=== PATIENT | male | born 1960 | race Caucasian/White ===

== ENCOUNTER 2018-04-16 07:44 | Inpatient (IN) | payer OTHER ==
[~2018-04-16] VITALS: Ht 172.7 cm; Wt 89.6 kg
--- NOTE | 2018-04-16 07:44 | NUR ---
BIB MEDICS FROM [facility]. PT WAS FOUND ALOC & INCONTINENT OF URINE IN BED IN HIS CELL BY HIS JAILERS ON ROUNDS THIS MORNING. PT WAS LAST SEEN NORMAL LAST NIGHT. PT ARRIVES W/ EYES OPEN, RIGHT GAZE, WITH DEEP RESPIRATIONS, HOLDING ARMS STIFF TO SIDES, NOT REALLY MOVING, NOT RESPONDING TO NAME, NOT TRACKING, NON-VERBAL, NOT FOLLOWING COMMANDS. PT PLACED ON FULL MONITORS & O2 VIA MASK. SEEN ON ARRIVAL BY DR. SALAS. (+)GAG REFLEX.
--- NOTE | 2018-04-16 08:03 | NUR ---
IV BEGUN BY TANYA STAUFFER W/ LABS INCLUDING 1ST BLOOD CULTURE DRAWN.
--- NOTE | 2018-04-16 08:10 | NUR ---
RT @ BEDSIDE UNSUCCESSFULLY ATTEMPTING ABG. PT IS NOW ON ROOM AIR PER DR. SALAS.
--- NOTE | 2018-04-16 08:20 | NUR ---
PT ROLLED; SKIN CLEANSED, & CLEAN SHEET/CHUX/DIAPER PLACED UNDER PT. SKIN IS INTACT.
[2018-04-16 08:21] VITALS: Ht 172.7 cm; Wt 89.6 kg
--- NOTE | 2018-04-16 08:24 | NUR ---
ABG SUCCESSFULLY DRAWN BY RT ON 2ND ROUND OF ATTEMPTS.
--- NOTE | 2018-04-16 08:25 | NUR ---
DUVALL CATH INSERTED; WHILE PREPARING DUVALL INSERTION TRAY, PT STARTED VOIDING, MID STREAM URINE COLLECTED BY PELON STAUFFER & SENT TO LAB. PT HARDLY REACTED TO PROCEDURE.
--- NOTE | 2018-04-16 08:26 | NUR ---
RECTANGULAR SCAR NOTED TO RT ANTERIOR THIGH, LOOKS LIKE SKIN GRAFT DONOR SITE. SCARRING NOTED TO RT CHEST/RT SHOULDER AREA CONSISTENT W/ PREVIOUS BURN/SKIN GRAFTS.
[2018-04-16 08:28] LABS: BASOPHIL % 0.4 % (0-2)
--- NOTE | 2018-04-16 08:30 | NUR ---
TO CT VIA [facility].
--- NOTE | 2018-04-16 08:35 | NUR ---
BILAT NARES SWABBED FOR INFLUENZA SCREENING WHILE PT STILL IN CT. PT MORE AWAKE, JERKING HIS HEAD BACK & FORTH/UNCOOPERATIVE W/ SWABBING.
--- NOTE | 2018-04-16 08:36 | NUR ---
BACK FROM CT. PCXR IN PROGRESS.
[2018-04-16 08:40] LABS: CALCIUM 8.2 mg/dL (8.5-10.1); CARBON DIOXIDE 26.7 mmol/L (21-32); CHLORIDE SERUM 110 mmol/L (98-107); CREATININE SERUM 0.9 mg/dL (0.7-1.3); GFR1 > 60 mL/min; GLUCOSE SERUM 98 mg/dL (74-106); POTASSIUM SERUM 4.5 mmol/L (3.5-5.1); SODIUM SERUM 142 mmol/L (136-145)
[2018-04-16 08:41] LABS: microscopic required? NO
[2018-04-16 08:44] LABS: ALBUMIN 2.8 g/dL (3.4-5.0); ALKALINE PHOSPHATASE 248 U/L (46-116); ALT/SGPT 71 U/L (16-63); AST/SGOT 88 U/L (15-37); BILIRUBIN TOTAL 3.4 mg/dL (0.20-1.00); CHOLESTEROL 112 mg/dL (<200); HDL CHOLESTEROL 70 mg/dL (40-60); TOTAL PROTEIN, SERUM 6.7 g/dL (6.4-8.2)
--- NOTE | 2018-04-16 08:45 | NUR ---
FLUID BOLUS BEGAN ORDERED.
--- NOTE | 2018-04-16 08:48 | NUR ---
LAB @ BEDSIDE FOR 2ND BLOOD CULTURE.
[2018-04-16 09:12] LABS: PLATELET COUNT 73 x10^3mcL (130-400)
[2018-04-16 09:29] LABS: urine erythrocyte NEGATIVE (NEGATIVE)
--- NOTE | 2018-04-16 09:30 | NUR ---
TELEPHONE ADMISSION ORDERS RECEIVED FROM DR. BHATT.
[2018-04-16 09:44] LABS: AMPHETAMINE QUAL UR NONE DETECTED (See below)
[2018-04-16] MEDS ORDERED: LASIX20 MG PO (09:48)
[2018-04-16] MEDS ORDERED: CAPSAICIN42.5 GM TOP (09:48)
[2018-04-16] MEDS ORDERED: CIPRO500 MG PO (09:48)
[2018-04-16] MEDS ORDERED: LACTULOSE10 GM/152 PO (09:49)
[2018-04-16] MEDS ORDERED: DULERA1 AR2 INH (09:50)
[2018-04-16] MEDS ORDERED: XIFAXAN550 M1 PO (09:51)
[2018-04-16] MEDS ORDERED: ALDACTONE25 MG PO (09:52)
[2018-04-16] MEDS ORDERED: MP PO (09:55)
[2018-04-16] MEDS ORDERED: XOPENEX HF0.045 MG/1 INH (09:55)
--- NOTE | 2018-04-16 09:55 | NUR ---
SALEM SUMP INSERTION WAS TRIED BY DENISE FRANCES RN W/ NATALIO RN. ATTEMPT WAS UNSUCCESSFUL & PT HAD BLOOD FROM RT NARE & STARTED COUGHING UP BLOOD. ATTEMPTS WERE ABORTED & DR. SALAS WAS NOTIFIED OF BLEEDING. DR SALAS CHECKED PT & FELT BLOOD WAS COMING FROM NARE, NOT ESOPHAGUS, BUT STATED TO DC NGT ATTEMPTS & TO GIVE LACTULOSE RECTALLY INSTEAD.
--- NOTE | 2018-04-16 09:56 | NUR ---
MED REC COMPLETED USING PAPERWORK SENT FROM [facility].
--- NOTE | 2018-04-16 10:25 | NUR ---
NGT WAS PLACED RECTALLY & LACTULOSE WAS ADMINISTERED RECTALLY.
--- NOTE | 2018-04-16 10:33 | NUR ---
PER MICRO, PROBLEM W/ FLU SWAB. SPECIMEN RECOLLECTED & HANDED DIRECTLY TO APPLICATION INTEGRATION ENGINEER.
--- NOTE | 2018-04-16 11:08 | NUR ---
REPORT CALLED TO BHAVYA ON TELE.
[2018-04-16 12:04] VITALS: BP 110/88
--- NOTE | 2018-04-16 12:30 | NUR ---
RECEIVED PATIENT FROM ER AND HE REMAINS LETHARGIC AND HAS NOT RESPONDED EXCEPT MINIMALLY TO VERBAL AND TACTILE COMANDS. PATIENT IS ON IV FLUIDS AT 150CC PER HOUR FROM THE ER AND RECEIVED TWO LITERS OF NORMAL SALINE AND LACTULOSE VIA RECTAL IN THE ER WELL. PER THE NURSE THE PATIENT RECEIVED ROCEPHIN AND HAS BEEN WITH MINIMAL RESPONSE TO THEM WELL. HE HAS NOTED TATOOS TO THE BODY AND SCARRING TO THE SHOULDER AND THE LEG FROM APPARENT SKIN GRAFTS. PATIENT HAS VITALS AT THIS TIME AT 97.9, 132/84, 96 MAP, 87, 18. PATIENT HAQ SNOT APPEAR TO BE IN ANY RESPIRATORY DISTRESS AND WITH HISTIRY OF CIRRHOSIS AND BI POLAR DISORDER WELL HX OF PNUEMONIA IN JANUARY. PATIENT HAS BEEN GIVEN NARCAN BUT NO EFFECT AND HIS DRUG LEVEL IS NEGATIVE FOR NARCOTICS. PATIENT HAS AN TIV TO BOTH AC AND IS WITH NEGATIVE CHEST XRAY THE LAB THAT DEFINES THIS HOPITAL STAY IS THE AMMONIA LEVEL AT 267. PATIENT IS NTO ABLE TO TRACK AND NO VERBALIZATION AND HAS A HISTORY OF HEPATITIS C. THE GAURDS ARE AT BEDSIDE AND SECURITY HAS BEEN MAINTAINED. CONTINUED ION IV FLUIDS AND DR BHATT IS NOW HERE TO SEE THE PATIENT AND AWAITING FURTHER ORDERS.
[2018-04-16 12:41] VITALS: BP 132/84
[2018-04-16 13:34] VITALS: BP 129/60
[2018-04-16 16:14] VITALS: BP 137/84
--- NOTE | 2018-04-16 16:55 | NUR ---
SPOKE WITH DR AGUILA ON THE PHONE AND ORDER FOR LACTULOSE RECTAL ENEMA OF 90CC WITH 90 CC OF WATER. PATIENT IS TO RETAIN THE MEDICATION. DUE TO HIS ALTERED LEVEL OF CONCIOUSNESS THE PATIENT MAY NOT BE ABLE TO FOLLOW THIS DIRRECTION. WILL ATTEMPT INDICATED. PATIENT IS LESS STILL NOW AND RESTING QUIETLY. WILL MONITOR FOR OUTPUT.
--- NOTE | 2018-04-16 18:08 | NUR ---
PATIENT GIVEN THE ENEMA WITH THE LACTULOSE AND WATER. PATIENT IS STILL NOT QUITE COMPLETELY ALERT AND ANSWERS YES ERIC TO EVERYTHING ASKED. ENCOURAGE TO HOLD THE MEDICATION IN FOR LONG HE CAN. THE PATIENT ADMITS HE WAS NOT TAKING HIS LACTULOSE HE SHOULD AT THE CORRECTION. WILL MONITOR FOR OUTPUT.
--- NOTE | 2018-04-16 18:30 | NUR ---
NO RESULTS YET WITH THE LACTULOSE ENEMA. WILL CONTINUE TO MONITOR INDICATED.
--- NOTE | 2018-04-16 19:35 | NUR ---
RECEIVED REPORT FROM DAY SHIFT RN. PT LETHARGIC. RESPONDS TO VERBAL SIMULI. ORIENTED TO SELF. REORIENTED TO PLACE AND TIME. NO SOB ON ROOM AIR. NO C/O PAIN. IV TO RAC AND LAC, INTACT. SAFETY MEASURES IN PLACE. BED IN LOWEST POSITION. SIDE RAILS UP X3. DEMONSTRATED HOW TO USE THE CALL LIGHT FOR ASSISTANCE. CALL LIGHT WITHIN REACH. CIM GUARDS AT BEDSIDE.
[2018-04-16 21:30] VITALS: BP 120/84
[2018-04-17 05:51] VITALS: BP 117/80
--- NOTE | 2018-04-17 06:45 | NUR ---
PT SLEPT WELL THROUGHOUT SHIFT. AROUSABLE WITH VERBAL STIMULI. PT ORIENTED TO SELF. SLOW RESPONSE BUT ABLE TO FOLLOW COMMANDS. NO SOB ON ROOM AIR. NO C/O PAIN. NO ACUTE DISTRESS NOTED. SAFETY MEASURES MAINTAINED. BED IN LOWEST POSITION. SIDE RAILS UP X3. CALL LIGHT WITHIN REACH. CIM GUARDS X2 AT BEDSIDE. WILL ENDORSE CONTINUITY OF CARE TO ONCOMING RN.
--- NOTE | 2018-04-17 07:20 | NUR ---
PT SEEN REST ON BED WITH TWO GUARDS AT BED SIDE. PT IS SLEEPING BUT AROUSABLE WITH VERBAL RESPONSE, CLEAR SPEECH. PT IS ORIENTED X 2. PT BREATHING ON RA, EVEN, UNLABORED. IV SITE SALINE LOCK PER ORDER.
[2018-04-17 07:41] LABS: CALCIUM 8.2 mg/dL (8.5-10.1); CARBON DIOXIDE 21.5 mmol/L (21-32); CHLORIDE SERUM 113 mmol/L (98-107); CREATININE SERUM 0.8 mg/dL (0.7-1.3); GFR1 > 60 mL/min; GLUCOSE SERUM 91 mg/dL (74-106); POTASSIUM SERUM 3.8 mmol/L (3.5-5.1); SODIUM SERUM 143 mmol/L (136-145)
--- NOTE | 2018-04-17 07:53 | NUR ---
RECEIVED PT REPORT FROM ACCESS CONTROL OFFICER NURSE. PT SEEN REST ON BED WITH SITTER AT BED SIDE. DR. SANTORO AT BED SIDE. MADE DR. SANTORO AWARE PT'S HR 135, RR 44, BREATHING O2 2L VIA NC, O2 SAT 94% PER REPORT, PT NOT ABLE TO TAKE ANY ORAL MEDS AT THIS TIME. DR. SANTORO STATED SHE WILL ORDER SONE MED TO CORRECT PT'S FAST HR AND BREATHING PROBLEM. DUVALL IN PLACE. LIBBY URINE, 250ML OVER NIGHT PER REPORT. IV SITE PATENT, INTACT, IVF INFUSING AT 18ML/ HR.
[2018-04-17 07:59] LABS: BASOPHIL % 0.4 % (0-2); PLATELET COUNT 58 x10^3mcL (130-400); RED CELL DISTRIBUTION WIDTH 14.1 % (11.5-14.5)
[2018-04-17 08:32] VITALS: BP 107/73
--- NOTE | 2018-04-17 08:50 | NUR ---
PT IS ORIENTED X 2, CLEAR SPEECH. PT IS ABLE TO SWALLOW TO PILL WITHOUT PROBLEM. PT IS CALM AND COOPERATE, WILL CONTINUE TO MONITOR.
[2018-04-17 12:27] VITALS: BP 102/64
[2018-04-17 17:22] VITALS: BP 97/64
--- NOTE | 2018-04-17 19:45 | NUR ---
RECEIVED REPORT FROM DAY SHIFT RN. PT RESTING IN BED WITH EYES CLOSED. AROUSABLE WITH VERBAL STIMULI. PT ORIENTED TO PERSON. REORIENTED TO PLACE AND TIME. NO SOB ON ROOM AIR. NO C/O PAIN AT THIS TIME. SALINE LOCK TO RAC AND LAC, INTACT. SAFETY MEASURES IN PLACE BED IN LOWEST POSITION. SIDE RAILS UP X2. INSTRUCTE PT TO USE THE CALL LIGHT FOR ASSISTANCE. CALL LIGHT WITHIN REACH. CIM GUARDS X2 AT BEDSIDE.
[2018-04-17 20:56] VITALS: BP 103/67
--- NOTE | 2018-04-18 02:00 | NUR ---
PT SLEEPING. NO SOB ON ROOM AIR. NO FACIAL GRIMACING. NO DISTRESS NOTED. SAFETY MEASURES IN PLACE. WILL CONTINUE TO MONITOR.
[2018-04-18 05:29] VITALS: BP 114/69
--- NOTE | 2018-04-18 06:05 | NUR ---
PT SLEPT WELL THROUGHOUT SHIFT. RESPONDS TO VERBAL STIMULI. ORIENTED TO PERSON. NO SOB ON ROOM AIR. NO C/O PAIN. NO ACUTE CHANGES NOTED. SAFETY MEASURES MAINTAINED. BED IN LOWEST POSITION. SIDE RAILS UP X2. CALL LIGHT WITHIN REACH. CIM GUARDS X2 AT BEDSIDE. WILL ENDORSE CONTINUITY OF CARE TO ONCOMING RN.
[2018-04-18 07:04] LABS: CALCIUM 8.5 mg/dL (8.5-10.1); CARBON DIOXIDE 24.4 mmol/L (21-32); CHLORIDE SERUM 108 mmol/L (98-107); CREATININE SERUM 0.7 mg/dL (0.7-1.3); GFR1 > 60 mL/min; GLUCOSE SERUM 80 mg/dL (74-106); SODIUM SERUM 139 mmol/L (136-145)
[2018-04-18 07:12] LABS: BASOPHIL % 0.5 % (0-2)
[2018-04-18 07:14] LABS: PLATELET COUNT 60 x10^3mcL (130-400)
--- NOTE | 2018-04-18 08:00 | NUR ---
LETHARGIC AND ALERT TO SELF AND PLACE. LUNG SOUNDS CLEAR ON RA. DENIES ANY PAIN. SL TO LT AND RT AC'S. RIGHT ANKLE SHACKLED TO BED. 2 GUARDS AT BEDSIDE. REG DIET. DUVALL DRAINING ORANGE URINE. ASSIST WITH MOST ADL'S D/T CONFUSION. CALL LIGHT WITHIN REACH.
[2018-04-18 09:12] VITALS: BP 103/67
[2018-04-18 12:46] VITALS: BP 107/65
--- NOTE | 2018-04-18 14:00 | NUR ---
Initial Nutrition Assessment Dx: Hepatic encephalopathy PMHx: COPD, Cirrhosis with hx Hep A/B/C, Anxiety, Bipolar PSHx: None Labs: (04/18) Na 139, K 4, BG 80, BUN 17, Cr 0.7, Ammonia 145H, AST 88H, ALT 71H, WBC 6.1, H/H 12.4L/34L Meds: Aldactone, Lactulose, Lasix, Mylanta, Xopenex, Xifaxan Diet: Regular PO Intake: (04/18) B: 100% (04/17) B/L: 100% D: 25% Ht: 68" (173 cm) Wt: 196# (89 kg) BMI: 30 (Obese Class I) IBW: 154# %IBW 127% UBW: 200# Age: 58 y/o male Food Allergies: NKFA Skin: Intact Brandon: 14 Edema: None GI: Last BM x 1 (04/17) Per H&P, pt. admitted from [facility], found with AMS in his cell, associated with elevated ammonia levels. Abdominal US conducted this morning 04/18/18 with findings suggesting liver with nodular surface, likely cirrhosis and cholelithiasis per provider notes. Pt. endorses excellent appetite at this time without GI distress noted. No nutrition concerns stated at this time. Declined to decrease protein servings with meals for encephalopathy and elevated ammonia levels. T: Admitted with potential risk diagnosis Problem with: No c/o N/V/D/C Problems with: Chewing: N Swallowing: N Current appetite: Excellent Recent wt change: None %wt change: N/A Vitamin/Supplement use: None Special diet at home: Regular at [facility] Physical activity: Walks around grounds and paces within cell on a daily basis Education: No diet education was provided during visit. Estimated Nutritional Needs Based on actual body weight 89 kg: Energy: 2019-9626 kcal/d (22-24 kcal/kg- adult weight maintenance) Protein: 53-71 g/d (0.6-0.8 g/kg)-heaptic encephalopathy Fluid: 6295-4452 ml/d (1 ml/kcal-fluid balance) or per doctor Nutrition Diagnosis 1. Altered nutrition related laboratory values r/t hepatic encephalopathy and hx liver cirrhosis AEB elevated ammonia levels 145, and elevated liver panel with values AST 88, and ALT 71H. Intervention/RD recommendations 1. Continue regular diet as ordered and as tolerated. Monitor/Evaluate Goal: PO intake at least 75% of estimated needs Monitor: PO intake, Labs, GI function, diet tolerance F/U in 7 days as low risk (04/25)
--- NOTE | 2018-04-18 14:01 | NUR ---
Intervention/RD recommendations 1. Continue regular diet as ordered and as tolerated.
[2018-04-18 16:48] VITALS: BP 111/73
--- NOTE | 2018-04-18 18:39 | NUR ---
CALM, RESTING COMFORTABLY. SLEPT MOST OF SHIFT. REFUSED 1700 DOSE OF LACTULOSE. NO BM TODAY. AMMONIA 145. GUARDS X 2 AT BEDSIDE. VSS. CALL LIGHT WITHIN REACH.
[2018-04-18 19:10] VITALS: BP 109/73
--- NOTE | 2018-04-18 19:27 | NUR ---
DUVALL CARE PROVIDED.
--- NOTE | 2018-04-18 19:30 | NUR ---
RECEIVED PT AWAKE ALERT TO NAME AND BIRTHDATE ONLY.REORIENTATION PROVIDED.GUARDS AT BEDSIDE.BREATHING EASY AND NON-LABORED.DENIES CHESTPAIN AT THIS TIME.BP 109/73 MMHG,HR 57.F/C TO ORANGY COLORED URINE.DENIES ANY PAIN.WILL CONTINUE TO MONITOR.
--- NOTE | 2018-04-19 04:41 | NUR ---
PT SLEPT WELL WITH GUARDS AT BEDSIDE.PT MORE ALERT AND RESPONSIVE,REMAINS ON LACTULOSE TX.LARGE SOFT BM THIS SHIFT.DENIES ANY PAIN OR DISCOMFORT.ALL NEEDS MET.WILL CONTINUE TO MONITOR.
[2018-04-19 06:06] VITALS: BP 100/65
[2018-04-19 09:09] VITALS: BP 100/65
[2018-04-19 09:51] VITALS: BP 131/92
[2018-04-19 13:23] VITALS: BP 109/78
[2018-04-19 16:43] VITALS: BP 108/74
--- NOTE | 2018-04-19 19:20 | NUR ---
REC'D REPORT FROM DAYSHIFT RN TO ASSUME CARE. PT IS A/O X4, SPEECH CLEAR AND APPROPRIATE. DENIES ANY PAIN OR DISCOMFORT. NO ACUTE DISTRESS NOTED. NO SOB NOTED, RESPS E/U ON ROOM AIR. CHEST RISE EQUAL AND SYMMETRICAL. LUNG SOUNDS CTA. AUTOCUTTER IN PLACE, SHOWING NSR. ABD ROUNDED, SOFT, NONTENDER TO TOUCH. HERNIA NOTED TO MID ABDOMEN. BOWEL SOUNDS ACTIVE. BM NOTED, PT CLEANED AT THIS TIME. PT VOIDS FREELY WITH BRP. SKIN WARM DRY TO TOUCH. IV TO LAC G 20 AND RAC G 20 INTACT AND PATENT, DSG CDI, SL. PULSES PALPABLE X4. NO EDEMA NOTED. CIM GUARDS AT BEDSIDE. LLE WITH CUFFS IN PLACE. INSTRUCTED TO CALL FOR ANY ASSISTANCE. CALL LIGHT WITHIN REACH. WILL CONTINUE TO MONITOR.
[2018-04-19 21:17] VITALS: BP 108/57
--- NOTE | 2018-04-19 23:28 | NUR ---
PT ASSISTED ON BEDPAN, PT HAD LARGE SOFT BM.
--- NOTE | 2018-04-20 03:25 | NUR ---
PT SEEN SLEEPING COMFORTABLY BUT EASILY AROUSABLE. NO ACUTE DISTRESS NOTED. NO SOB NOTED, RESPS E/U. 2 CIM GUARDS AT BEDSIDE.
[2018-04-20 05:56] VITALS: BP 108/73
[2018-04-20 06:34] LABS: BASOPHIL % 1.1 % (0-2); RED CELL DISTRIBUTION WIDTH 14.2 % (11.5-14.5)
[2018-04-20 07:04] LABS: CARBON DIOXIDE 22.8 mmol/L (21-32); CHLORIDE SERUM 107 mmol/L (98-107); CREATININE SERUM 0.8 mg/dL (0.7-1.3); GFR1 > 60 mL/min; GLUCOSE SERUM 93 mg/dL (74-106); SODIUM SERUM 139 mmol/L (136-145)
--- NOTE | 2018-04-20 07:05 | NUR ---
RECEIVED REPORT FROM REIMBURSEMENT LIAISON NURSE AT THIS TIME. PATIENT RESTING COMFORTABLY IN BED. NO APPARENT DISTRESS OR DISCOMFORT NOTED. BREATHING EVEN AND UNLABORED. NO INDICATION OF SHORTNESS OF BREATH. PATIENT DENIES CHEST PAIN AT THIS TIME. IV PATENT AND INTACT. DUVALL CATHETER DRAINGING TO GRAVITY DARK YELLOW URINE. ALL QUESTIONS AND CONCERNS ADDRESSED. ALL NEEDS ATTENDED TO. WILL CONTINUE TO MONITOR
[2018-04-20 07:44] LABS: PLATELET COUNT 61 x10^3mcL (130-400)
[2018-04-20 10:00] VITALS: BP 116/75
--- NOTE | 2018-04-20 10:00 | NUR ---
ALL MORNING MEDICATIONS ADMINISTERED. PATIENT TOLERATED MEDICATION WELL. NO ADVERSE EFFECTS NOTED. ALL QUESTIONS AND CONCERNS ADDRESSED. ALL NEEDS ATTENDED TO. WILL CONTINUE TO MONITOR
--- NOTE | 2018-04-20 12:28 | NUR ---
PATIENT REMOVED IV TO LEFT AC. IV CATH INTACT. IV TO RIGHT AC PATENT AND INTACT. ALL NEEDS ATTENDED TO. GUARDS AT BEDSIDE. WILL CONTINUE TO MONITOR
[2018-04-20 12:59] VITALS: BP 101/73
--- NOTE | 2018-04-20 13:00 | NUR ---
PATIENT SITTING UP IN BED EATING LUNCH AT THIS TIME. PATIENT TOLERATING DIET WELL. ALL NEEDS ATTENDED TO. GUARDS AT BEDSIDE.
[2018-04-20 16:13] VITALS: BP 107/71
--- NOTE | 2018-04-20 18:12 | NUR ---
PATIENT SITTING UP IN BED EATING DINNER AT THIS TIME. PATIENT TOLERATING DIET WELL. NO APPARENT DISTRESS NOTED. GUARDS AT BEDSIDE. ALL NEEDS ATTENDED TO. WILL CONTINUE TO MONITOR
--- NOTE | 2018-04-20 18:41 | NUR ---
PATIENT RESTING COMFORTABLY IN BED AT THIS TIME. NO DISTRESS OR DISCOMFORT NOTED. IV PATENT AND INTACT. ALL QUESTIONS AND CONCERNS ADDRESSED. SAFETY PRECAUTIONS MAINTAINED. ALL NEEDS ATTENDED TO. WILL ENDORSE ALL CARE TO PRECAST MOLDER NURSE
--- NOTE | 2018-04-20 19:50 | NUR ---
RECEIVED PT AWAKE, ALERT AND ORIENTED TO PERSON, PLACE AND TIME. NO CONFUSION NOTED. VERBAL RESPONSE AND THOUGHT PROCESS APPEARED SLOW. DENIES ANY CAMARENA, DIZZINESS. NO DISTRESS NOTED. PT DENIES N/V. DENIES ANY PAIN. PT IS CIW, X2 GUARDS AT BEDSIDE. PT HAS CUFF TO LLE, CIRCULATION, SENSATION AND MOTOR IS INTACT. IV NOTED TO RFA, SALINE LOCKED. NO SWELLING, REDNESS OR PAIN NOTED TO AREA. ALL SAFETY AND COMFORT MEASURES MAINTAINED. CALL LIGHT IN REACH. WILL CONTINUE TO MONITOR.
[2018-04-20 20:42] VITALS: BP 111/78
--- NOTE | 2018-04-21 05:08 | NUR ---
PT RESTED DURING THE NIGHT WITH NO DISTRESS OR ACUTE CHANGES IN CONDITION. NO CONFUSION OR DISORIENTATION NOTED. PT HAS REMAINED ALERT AND ORIENTED. NO C/O PAIN, NO C/O RESP. DISCOMFORT. IV REMAINS INTACT TO RFA. FC DRAINING TO GRAVITY. PT HAD X1 BM DURING SHIFT, AMBULATED TO BATHROOM, UNSTEADY, SLOW GAIT. AMBULATES WITH ASSIST. ALL SAFETY MEASURES MAINTAINED. CALL LIGHT AND PERSONAL ITEMS IN REACH. X2 CIM GUARDS AT BEDSIDE. WILL ENDORSE CARE TO AM NURSE AND CONTINUE TO MONITOR.
[2018-04-21 05:10] VITALS: BP 106/62
--- NOTE | 2018-04-21 07:15 | NUR ---
RECEIVED PT. IN BED A/A/O X3. NO SOB, NO N/V NOTED. PT. DENIES ANY PAIN AT THIS TIME. IV SITE NOTED TO R AC. CIM OFFICERS X2 AT BEDSIDE. F/C DRAINING LIBBY URINE. BED IN LOW POS., CALL LIGHT WITHIN REACH. SIDE RAILS UP X3.
[2018-04-21 09:35] VITALS: BP 106/79
[2018-04-21 13:00] VITALS: BP 115/65
--- NOTE | 2018-04-21 16:55 | NUR ---
DISCHARGE INSTRUCTIONS GIVEN TO PT. WHO VERBALIZED UNDERSTANDING OF INSTRUCTIONS. IV H/L TO R AC REMOVED. TELE. MONITOR #4 REMOVED AND RETURNED TO TELE. MONITOR STATION. DISCHARGE PAPER-WORK HANDED TO THE CIM OFFICER. F/C REMOVED.
--- NOTE | 2018-04-21 19:14 | NUR ---
PT. IS STILL AWAITING FOR MEDICAL TRANSPORTATION TO BE TRANSPORTED BACK TO THE [facility]. REPORT GIVEN TO EH REYES.
--- NOTE | 2018-04-21 19:20 | NUR ---
RECEIVED PT AWAKE, ALERT AND ORIENTED X4. NO ACUTE DISTRESS NOTED. PT DENIES ANY PAIN OR DISCOMFORT. BREATHING E/U. PT IS READY FOR DISCHARGE AND CURRENLTY WAITING FOR TRANSPORT. X2 CIM GUARDS AT BEDSIDE. ALL DISCHARGE INSTRUCTIONS/EDUCATION GIVEN PER AM NURSE. NO IV, DUVALL OR TELE MONITOR NOTED. ALL SAFETY AND COMFORT MEASURES MAINTAINED AT THIS TIME.
[2018-04-21 20:33] VITALS: BP 118/59
--- NOTE | 2018-04-21 21:25 | NUR ---
TRANSPORT ARRIVED FOR PT. ALL PT BELONGINGS TAKEN, PT TRANPORTED TO VEHICLE VIA WC ACCOMPANINED BY HORSE SHOER. NO DISTRESS NOTED. SAFETY AND COMFORT MEASURES MAINTAINED.
== END 2018-04-21 21:46 | disposition other institution (70) | DRG 441 ==
LOC: ED 07:44 → DU 09:32
PROVIDERS: Emergency Medicine; ADMIT Internal Medicine
DX: K72.90 Hepatic failure, unspecified without coma (principal); G93.41 Metabolic encephalopathy; K74.60 Unspecified cirrhosis of liver; J01.90 Acute sinusitis, unspecified; K76.81 Hepatopulmonary syndrome; J44.9 Chronic obstructive pulmonary disease, unspecified; F31.9 Bipolar disorder, unspecified; B18.2 Chronic viral hepatitis C; Z68.29 Body mass index [BMI] 29.0-29.9, adult; Z23 Encounter for immunization; Z72.89 Other problems related to lifestyle
CPT/HCPCS: 36600; 87804; 90732; 94150; 97112-GP; 97116-GP; 97530-GP; J0696; J1956; J2310; J2550; J7030; J7040; J7620; Q0092

== ENCOUNTER 2018-08-12 15:25 | Inpatient (IN) | payer OTHER ==
[~2018-08-12] VITALS: Ht 172.7 cm; Wt 83.7 kg
[~2018-08-12 15:25] MED LIST: ALDACTONE25 MG PO; CAPSAICIN42.5 GM TOP; CIPRO500 MG PO; DULERA1 AR2 INH; LACTULOSE10 GM/152 PO; LASIX20 MG PO; MP PO; XIFAXAN550 M1 PO; XOPENEX HF0.045 MG/1 INH
--- NOTE | 2018-08-12 15:46 | NUR ---
PT BIBA FROM [facility], C/O GENERALIZED WEAKNESS N/V X4 DAYS. PT PLACED ON FULL CM, FULL ROM OF LUIS UPPER AND LOWER EXTREMETIES NOTED, STRONG AND EQUAL FLATWORK FOLDER AND PUSHES OF LUIS UPPER AND LOWER EXTREMETIES. WAIST CHAIN TEMPORARILY REMOVED BY GUARDS FOR ASSESSMENT. PT STS HE WAS DX WITH DM AND TAKING DM MEDS, STS HE WAS TRANSFERRED TO [facility] APPROX 1 YEAR AGO AND HAS NOT BEEN "GIVEN THE DIABETES MEDS SINCE MY TRANSFER". HE DOES NOT RECALL BEING TOLD HE NO LONGER HAS DM, PER MEDICS. PT IN POSITION OF COMFORT, CALL LIGHT WITHIN REACH, NAD NOTED. AWAITING MSE.
--- NOTE | 2018-08-12 16:12 | NUR ---
DR NELSON AT BEDSIDE FOR MSE.
--- NOTE | 2018-08-12 16:17 | NUR ---
PER DR NELSON, MEDICATE PT WITH 1L OF NS, INITIAL 500CC BOLUS AND DECREASE RATE OF NS TO 150ML/HR.
[2018-08-12 16:26] LABS: BASOPHIL % 0.3 % (0-2)
[2018-08-12 16:27] LABS: PLATELET COUNT 63 x10^3mcL (130-400); RED CELL DISTRIBUTION WIDTH 17.2 % (11.5-14.5)
[2018-08-12 16:37] LABS: microscopic required? YES; urine erythrocyte 1+ (NEGATIVE)
[2018-08-12 16:50] LABS: FREE T4 0.9 ng/dL (0.76-1.46)
[2018-08-12 16:52] LABS: FREE THYROXINE INDEX 1.1 ug/dL (1.4-4.5)
[2018-08-12 17:02] LABS: AMPHETAMINE QUAL UR NONE DETECTED (See below)
[2018-08-12 17:08] LABS: T3 TOTAL 0.44 ng/mL
--- NOTE | 2018-08-12 18:55 | NUR ---
PT GIVEN SANDWICH, PER DR OMAR LEMONS.
--- NOTE | 2018-08-12 19:25 | NUR ---
REPORT GIVEN TO EH CASTILLO TO ASSUME CARE OF PT.
[2018-08-12 19:56] LABS: CALCIUM 9.2 mg/dL (8.5-10.1); CARBON DIOXIDE 27.5 mmol/L (21-32); CHLORIDE SERUM 91 mmol/L (98-107); CREATININE SERUM 1.1 mg/dL (0.7-1.3); GFR1 > 60 mL/min; GLUCOSE SERUM 443 mg/dL (74-106); POTASSIUM SERUM 4.1 mmol/L (3.5-5.1); SODIUM SERUM 130 mmol/L (136-145)
[2018-08-12 20:04] LABS: ALKALINE PHOSPHATASE 287 U/L (46-116); ALT/SGPT 59 U/L (16-63); AST/SGOT 49 U/L (15-37); BILIRUBIN TOTAL 11.39 mg/dL (0.20-1.00); CHOLESTEROL 142 mg/dL (<200); LIPASE 85 IU/L (73-393); TRIGLYCERIDES 106 mg/dL (<150)
[2018-08-12 20:05] LABS: ALBUMIN 2.5 g/dL (3.4-5.0); CHOLESTEROL/HDL RATIO 8.9; HDL CHOLESTEROL 16 mg/dL (40-60); TOTAL PROTEIN, SERUM 5.5 g/dL (6.4-8.2)
--- NOTE | 2018-08-12 21:02 | NUR ---
PT AAOX4, PT SITTING UP IN BED, NO S/S OF DISTRESS NOTED. PT ON AT 90% PT PLACED ON 2L O2 VIA NC, PT CURRENT O2 SAT 100%. PT DENIES PAIN AT DISCOMFORT AT THIS TIME. TWO CORRECTION OFFICERS PRESENT AT BEDSIDE.
--- NOTE | 2018-08-12 21:55 | NUR ---
REPORT GIVEN TO EH QUINTERO TO ASSUME CARE OF PT.
--- NOTE | 2018-08-12 22:10 | NUR ---
RECEIVED PT FROM [facility], CAME IN DUE TO NAUSEA, VOMITNG AND WEAKNESS X4 DAYS. AAOX4. DENIES HEADACHE/DIZZINESS. NO SOB NOTED, LUNG SOUNDS DIMINISHED ON THE BASES, O2 SAT=97% ON 3LPM/NC. DENIES CHEST PAIN/PRESSURE, SR W/ DEPRESSED T WAVE. DENIES ABDOMINAL PAIN/NAUSEA/VOMITING. LAST BM TODAY, LOOSE, STATED THAT HE TAKES LACTULOSE. VOIDS. JAUNDICE. W/ TRACE EDEMA AND BROWN DISCOLORATIONS ON BLE. SIDE RAILS UPX2. CALL LIGHT ON REACH. ENDORSED TO PRIMARY NURSE INGRID FOR CONTINUITY OF CARE
[2018-08-12 22:27] VITALS: BP 109/76
[2018-08-12 22:34] VITALS: Ht 172.7 cm; Wt 83.7 kg
[2018-08-13 05:31] VITALS: BP 93/58
--- NOTE | 2018-08-13 06:39 | NUR ---
PT SLEPT THROUGH OUT THE NIGHT AFTER BEING ADMITTED FROM ED. PT BS WAS 369 AND GAVE A 10 U REGULAR INSULIN. PT WAS COOPERATIVE WITH NURSING CARE.
[2018-08-13 06:42] LABS: CALCIUM 8.4 mg/dL (8.5-10.1); CHLORIDE SERUM 98 mmol/L (98-107); CREATININE SERUM 0.9 mg/dL (0.7-1.3); GFR1 > 60 mL/min; GLUCOSE SERUM 397 mg/dL (74-106); SODIUM SERUM 133 mmol/L (136-145)
--- NOTE | 2018-08-13 08:00 | NUR ---
ALERT AND ORIENTED. BREATHING FRELY ON RA. 94% SAT. MINIMAL ASSIST WITH ADL'S. RT ANKLE SHACKLED TO BED. URINAL WITHIN REACH. CALL LIGHT WITHN REACH. 1/2 NS INFUSING 100 CC HOUR TO RT HAND. CHRONIC HAND PAIN/ARTHRITIS TOLERABLE AT THIS TIME. CONSULT ORDER FOR GI. NO NAUSEA AT THIS TIME ABD SOFT. BM THIS AM. 2 GUARDS IN RM. PT HAS OWN CANE AT BEDSIDE.
[2018-08-13 08:05] VITALS: BP 94/49
[2018-08-13 08:13] LABS: BASOPHIL % 0 % (0-2); PLATELET COUNT 53 x10^3mcL (130-400); RED CELL DISTRIBUTION WIDTH 17.5 % (11.5-14.5)
[2018-08-13 13:08] VITALS: BP 94/56
[2018-08-13 16:21] VITALS: BP 101/65
--- NOTE | 2018-08-13 18:55 | NUR ---
HAS BEEN RESTING QUIETLY THIS SHIFT. NORCO PROVIDES SOME RELIEF FOR ARTHRITIC PAIN. HAS CANE AT BEDSIDE FOR AMBULATION. VSS. 1/2 NS INFUSING 75 CC HOUR. PT STATED HE DOES NOT GET ANY MEDICATIONS FOR DM AT [facility]. SEEN BY DR. FUCHS AND DR. ENNIS TODAY. CT ABD/PELVIS WITH ORAL AND IV CONTRAST ORDERED FOR TOMORROW 0600. NPO FOR EXAM. CALL LIGHT WITHIN REACH. FIRST STOOL SENT FOR OB.
--- NOTE | 2018-08-13 19:50 | NUR ---
RECIEVED HAND OFF REPORT FROM NURSE JUSTINA. PT IS AA/O X4. PT IS ON TELE #21 WITH SR DEPRESSED T. PT DENIES ANY CHEST PAIN OR SOB AT THIS TIME. PULSES ARE PALPABLE AND NO EDEMA NOTED. PT LUNG SOUNDS ARE DIMINISHED BILATERALLY. PT LAST BM WAS 6/15, ABDOMEN ROUND AND SOFT. PT HAS GENERAL WEAKNESS USES CANE FOR AMBULATION. PT C/O OF INTERMITTENT PAIN IN THE HANDS. PT STATES PAIN IS 2/10 AT THIS TIME. PT HAS IV IN LFA 20 GUAGE INFUSING WELL. WILL CONTINUE TO MONITOR.
[2018-08-13 20:40] VITALS: BP 95/56
--- NOTE | 2018-08-14 | NUR ---
PT IN BED , BREATHING IS EVEN AND UNLABORED. PT IS NOW NPO. PT DENIES ANY PAIN AT THIS TIME. WILL CONTINUE TO MONITOR.
[2018-08-14 05:57] VITALS: BP 94/56
--- NOTE | 2018-08-14 05:57 | NUR ---
PT HAD EPISODES OF DESAT ON ROOM AIR ON 88% , PLACED PT BACK ON NC O2 3L
--- NOTE | 2018-08-14 06:35 | NUR ---
PT SLEPT THROUGH LONG INTERVALS AT NIGHT. PT BREATHING IS EVEN AND UNLABORED.NO RESP DISTRESS NOTED. PT HAS BEEN NPO SINCE MIDNIGHT FOR CT OF ABD/PELVIS. PT DENIES PAIN AT THIS TIME. PT IS COOPERATIVE WITH NURSING CARE. MORNING BS WAS 249 , COVERED WITH 4 U OF REGULAR INSULIN.
[2018-08-14 06:42] LABS: CALCIUM 8.2 mg/dL (8.5-10.1); CARBON DIOXIDE 26.3 mmol/L (21-32); CHLORIDE SERUM 100 mmol/L (98-107); GFR1 > 60 mL/min; GLUCOSE SERUM 253 mg/dL (74-106); POTASSIUM SERUM 3.7 mmol/L (3.5-5.1); SODIUM SERUM 134 mmol/L (136-145)
--- NOTE | 2018-08-14 07:20 | NUR ---
ALERT AND ORIENTED. BREATHING FREELY ON 20 NC. LUNG SOUNDS CLEAR,DIMINISHED. RT PROTOCOL. DENIES PAIN AT THIS TIME. NPO FOR CT ABD/PELVIS. RT ANKLE SHACKLED TO BED. 2 GUARDS IN ROOM. 1/2 NS INFUSING 75 CC RT HAND. SL TO RT FA. CANE AT BEDSIDE. INDEPENDENT W ADLS. CALL LIGHT WITHIN REACH. TELE # 21 SB W DEPRESSED T WAVE. HR 58.
[2018-08-14 07:56] VITALS: BP 94/51
[2018-08-14 08:50] LABS: BASOPHIL % 0 % (0-2); PLATELET COUNT 53 x10^3mcL (130-400); RED CELL DISTRIBUTION WIDTH 17.4 % (11.5-14.5)
--- NOTE | 2018-08-14 10:54 | NUR ---
CELE'Ramon IV FOR CT SCAN. TECH CALLED TO SAY SHE WILL BE HERE IN APPROX 10-15 MIN.
--- NOTE | 2018-08-14 11:52 | NUR ---
BACK FROM CT SCAN. GAVE PT SANDWICH.
[2018-08-14 12:40] VITALS: BP 97/62
--- NOTE | 2018-08-14 13:12 | NUR ---
CALLED AND SPOKE TO AND MADE HIM AWARE OF CT SCAN ABD/PELVIS RESULT. NEW ORDER RECEIVED, ON 'S STANDPOINT PT IS OKAY TO DISCHARGE BACK TO [facility]. JUSTINA RN ASSIGNED TO THIS PT MADE AWARE OF ABOVE.
--- NOTE | 2018-08-14 13:28 | NUR ---
RECEIVED A CALL FROM AND ORDERS RECEIVED TO LET KNOW TO KEEP THE PT UNTIL TOMORROW AND TO ADD LFT TO AM BLOOD DRAW. SPOKE TO JUSTINA STAUFFER AND MADE HER AWARE OF ABOVE. AWAITING FOR TO DO ROUNDS AND WILL INFORM HIM OF ABOVE.
[2018-08-14 14:34] LABS: BILIRUBIN DIRECT 4.02 mg/dL (0.0-0.2); BILIRUBIN TOTAL 7.04 mg/dL (0.20-1.00)
[2018-08-14 14:35] LABS: ALBUMIN 1.9 g/dL (3.4-5.0); TOTAL PROTEIN, SERUM 4.2 g/dL (6.4-8.2)
[2018-08-14 17:01] VITALS: BP 94/62
--- NOTE | 2018-08-14 17:17 | NUR ---
HAS RESTED QUIETLY THIS SHIFT. NO PAIN MEDS ADMIN. CT ABD/PELVIS COMPLETED. SEE REPORT. INDEPENDENT W ADL'S. VSS. GOOD APPETITE. AFEBRILE. CONTINUES ON 02 2L NC. URINAL AT BEDSIDE. CALL LIGHT WITHIN RECH.
--- NOTE | 2018-08-14 20:00 | NUR ---
PT IS A/O X4. PT BREATHING IS EVEN AND UNLABORED. PT LUNG SOUND DIMINISHED BILATERALLY. PT IS ON TELE #21 SR WITH DEPRESSED T. PT IS ON NC 3L O2. PT PULSES ARE PALPABLE AND NO EDEMA NOTED. PT HAS ACTIVE BOWEL SOUNDS. LAST BM 08/14, ABD SOFT. PT HAS GENERAL WEAKNESS. PT DENIES ANY PAIN OR SOB AT THIS TIME. PT HAS IV LFA INFUSING WELL AND IV RH S/L. WILL CONTINUE TO MONITOR.
[2018-08-14 21:03] VITALS: BP 99/61
--- NOTE | 2018-08-15 01:26 | NUR ---
PT IS ASLEEP IN BED. NO RESP DISTRESS NOTED. BREATHING IS EVEN AND UNLABORED. WILL CONTINUE TO MONITOR.
[2018-08-15 05:32] VITALS: BP 96/60
--- NOTE | 2018-08-15 05:46 | NUR ---
PT SLEPT THROUGH THE NIGHT. EASILY RESPONDS TO VERBAL COMMANDS. PT DENIES ANY PAIN AT THIS TIME. NO RESP DISTRESS NOTED. BREATHING WAS EVEN AND UNLABORED. PT ON TELE #21 WITH SR DEPRESSED T. PT MORNING BS WAS 186 AND RECIEVED 2 U OF REGULARE INSULIN, PT HAS IV RH S/L AND IV TO LFA INFUSIING WELL. PT WAS COOPERATIVE WITH NURSING CARE.
[2018-08-15 06:46] LABS: CALCIUM 8.3 mg/dL (8.5-10.1); CARBON DIOXIDE 26.4 mmol/L (21-32); CHLORIDE SERUM 101 mmol/L (98-107); CREATININE SERUM 0.8 mg/dL (0.7-1.3); GFR1 > 60 mL/min; GLUCOSE SERUM 199 mg/dL (74-106); SODIUM SERUM 136 mmol/L (136-145)
[2018-08-15 06:56] LABS: BASOPHIL % 0.2 % (0-2)
--- NOTE | 2018-08-15 07:17 | NUR ---
HAND OF REPORT GIVEN TO NURSE STERN. ALL QUESTIONS AND CONCERNS ADRESSED.
--- NOTE | 2018-08-15 07:30 | NUR ---
RECEIVED PT. IN BED A/A/O X3. NO SOB, NO N/V NOTED. PT. DENIES ANY PAIN AT THIS TIME. [facility] OFFICERS X2 AT BEDSIDE. 1/2NS RUNNING AT 75 CC/HR VIA IV SITE AT L FA. SCD TO BLE MAINTAINED. BED IN LOW POS., CALL LIGHT WITHIN REACH. SIDE RAILS UP X3.
[2018-08-15 07:41] LABS: PLATELET COUNT 46 x10^3mcL (130-400); RED CELL DISTRIBUTION WIDTH 17.8 % (11.5-14.5)
[2018-08-15 09:00] VITALS: BP 103/51
--- NOTE | 2018-08-15 11:12 | NUR ---
Dr Templeton made aware that per dr Burgess patient can be discharged today. Attending nurse Ann Marie made aware.
[2018-08-15 13:17] VITALS: BP 120/66
[2018-08-15 15:10] VITALS: BP 120/66
--- NOTE | 2018-08-15 17:15 | NUR ---
DISCHARGE INSTRUCTIONS GIVEN TO PT. WHO VERBALIZED UNDERSTANDING OF INSTRUCTIONS. IV H/L #1 TO L FA AND IV H/L #2 TO R HAND REMOVED. TELE. MONITOR #21 REMOVED AND RETURNED TO TELE. MONITOR STATION. DISCHARGE PAPER-WORK SIGNED BY PT. DISCHARGE PAPER-WORK HANDED TO THE [facility] OFFICER.
--- NOTE | 2018-08-15 18:59 | NUR ---
PT. IS STILL AWAITING FOR THE [facility] AT THIS TIME.
--- NOTE | 2018-08-15 19:16 | NUR ---
REPORT GIVEN TO REY Sung RN. ALL QUESTIONS AND CONCERNS ADDRESSED.
--- NOTE | 2018-08-15 19:33 | NUR ---
DISCHARGED IN STABLE CONDITION BROUGHT BY [facility] BY [employer] [facility]
== END 2018-08-15 19:30 | disposition other institution (70) | DRG 441 ==
LOC: ED 15:25 → DU 21:17
PROVIDERS: Internal Medicine Gastroenterology; Specialist; ADMIT Internal Medicine
DX: K72.90 Hepatic failure, unspecified without coma (principal); G93.41 Metabolic encephalopathy; E87.1 Hypo-osmolality and hyponatremia; N17.9 Acute kidney failure, unspecified; K74.60 Unspecified cirrhosis of liver; E11.65 Type 2 diabetes mellitus with hyperglycemia; J44.9 Chronic obstructive pulmonary disease, unspecified; E86.0 Dehydration; G89.29 Other chronic pain; M54.9 Dorsalgia, unspecified; F31.9 Bipolar disorder, unspecified; B18.2 Chronic viral hepatitis C; F17.210 Nicotine dependence, cigarettes, uncomplicated; Z79.84 Long term (current) use of oral hypoglycemic drugs
CPT/HCPCS: 82962; 83880; 84439; G0378; J1815; J2270; J7030; Q0092; Q9966; Q9967